=== PATIENT | male | born 1930 | race Caucasian/White ===

== ENCOUNTER 2018-03-27 14:15 | Observation (INO) ==
[2018-03-27] MEDS ORDERED: IOPAMIDOL 100 ML BOTTLE IV ONE (14:16)
[2018-03-27] MEDS ORDERED: ONDANSETRON 4 MG/2 ML VIAL IV ONE (14:51)
[2018-03-27 15:15] LABS: Basophils # (Auto) 0 K/mcL (0.0-0.3); Basophils % (Auto) 0.1 % (0.0-2.0); Eosinophils # (Auto) 0 K/mcL (0.0-0.7); Eosinophils % (Auto) 0.1 % (0.0-7.0); Granulocytes % (Auto) 86.1 % (38.0-78.0); Lymphocytes % (Auto) 11.2 % (15.5-49.0); Mean Cell Volume 95.8 fL (80.0-100.0); Mean Corpuscular HGB Conc 33.9 g/dL (31.0-36.0); Mean Corpuscular Hemoglobin 32.5 pg (26.0-34.0); Monocytes # (Auto) 0.2 K/mcL (0.1-0.9); Monocytes % (Auto) 2.5 % (1.0-12.0); Platelet Count 151 K/mcL (140-440); RBC 5.02 M/mcL (4.50-5.90); Red Cell Distribution Width 12.2 % (11.5-14.5)
[2018-03-27] MEDS: 0.9 % SODIUM CHLORIDE 1,000 ML IV SCH ×4 (15:29→20:55)
[2018-03-27] MEDS: fentaNYL 100 MCG/2 ML VIAL IV PRN ×3 (15:29→21:12)
[2018-03-27 15:35] LABS: ALT/SGPT 14 U/l (0-40); Albumin 4.1 gm/dL (3.2-5.2); Albumin/Globulin Ratio 1.1 (1.0-2.3); Alkaline Phosphatase 80 U/L (39-117); Amylase 73 U/L (28-100); Blood Urea Nitrogen 31 mg/dl (8-23)
--- NOTE | 2018-03-27 17:18 | Cat Scan Report ---
CLINICAL INFORMATION: Abdominal pain COMPARISON: 12/14/2017 TECHNIQUE: Following enteric contrast, 80 cc of Isovue-300 were injected intravenously, and 60 seconds later, 0.625 mm helical slices were obtained from the mid heart through the subtrochanteric regions. Following reconstruction, 2.5 mm sagittal, coronal and axial reformatted images were processed and reviewed at bone, lung and soft tissue windows. Five minutes later, 0.625 mm helical slices were obtained from the mid heart through the kidneys and viewed at soft tissue windows.The exam was performed using radiation dose optimization techniques including, but not limited to, automated exposure control, adjustment of the mA and/or kV according to patient size and use of iterative reconstruction technique. FINDINGS: Lung bases show chronic bronchitis scattered bullae and also scattered fibrotic change similar previous study noted pulmonary abnormalities. No effusions. The heart is mildly enlarged and there is moderate calcification aortic and mitral valves. Small hiatal hernia - previously seen Images through the abdomen show the liver is unremarkable. There two large stones in the gallbladder, 3 cm and 2 cm, respectively. On today's exam, the gallbladder wall is mildly thickened - 5 mm - a new finding.Common bile ducts are normal caliber CBD is 5 mm. Both kidneys, adrenal glands, spleen and pancreas are normal. There is a saccular aneurysm of the infrarenal abdominal aorta with a maximal diameter of 5.1 cm. This has increased 2 mm millimeters from the previous study. The anterior wall of the aneurysm is thrombosed - true lumen of the aneurysm is only 3 cm. The celiac, SMA and renal iliac arteries are patent. The SHAUNNA appears occluded proximally. Urinary bladder is unremarkable. The prostate is diminutive and may have been surgically resected.Multiple sigmoid diverticuli noted, but no CT evidence for diverticulitis. The remainder of the colon appendix and small bowel are normal. There is moderate concentric wall thickening of the gastric antrum - new from prior study and suggestive of peptic disease. Bone windows shows degenerative change, but no focal osseous lesion IMPRESSION: 1. Cholelithiasis - there are two large stones the gallbladder - 3 and 2 cm respectively. The gallbladder wall is now mildly thickened suggesting cholecystitis and or adenomyomatosis. Intrahepatic and common bile ducts are normal. 2. Mild concentric wall thickening of the gastric pylorus suggesting peptic disease - new. 3. 5.1 cm saccular aneurysm of the infrarenal abdominal aorta extending to the aortic bifurcation. Slight increase in size since the CT over three months ago. The anterior wall of the aneurysm is thrombosed. The SHAUNNA, originates from the anterior wall and is thrombosed as well. If the patient is a candidate for endovascular graft, suggest referral to interventional radiology. The aneurysm is currently in a pre-rupture state 4. Sigmoid diverticulosis - no evidence of diverticulitis 5. Small hiatal hernia Interpreted and Authenticated by: Rylan Wells 03/27/18
[2018-03-27] MEDS ORDERED: PIPERACILLIN SODIUM/TAZOBACTAM 3.375 GM in DEXTROSE 5% IN WATER 50 ML IV ONE (18:52)
--- NOTE | 2018-03-27 18:53 | Emergency Department Note ---
Abdominal Pain HPI - General Chief Complaint: Abdominal Pain Stated Complaint: abd pain, nausea Time Seen by Provider: 03/27/18 14:26 Source: patient Mode of arrival: wheelchair - History of Present Illness HPI Narrative: 87-year-old male presents with abdominal pain for last 3 days but much worse over the last 24 hours. He is also vomited at least 10 times over the last 24 hours. States he can eat anything in his whole stomach hurts all over. He does not know how to describe it. States he has had diverticulitis in the past and if so this would be the worst case he is ever had. No fever chills. Does have decreased appetite and cannot really eat anything last 24-48 hours. Nothing seems to make the pain better or worse. No dysuria or frequency. No diarrhea. No shortness of breath or difficulty breathing. No treatments prior to arrival. - Related Data Home Medications Medication Instructions Recorded Confirmed Hydrochlorothiazide [Oretic] 25 mg PO DAILY 03/27/18 03/27/18 Lisinopril [Zestril] 20 mg PO DAILY 03/27/18 03/27/18 amLODIPine [Norvasc] 10 mg PO DAILY 03/27/18 03/27/18 Allergies Allergy/AdvReac Type Severity Reaction Status Date / Time No Known Drug Allergies Allergy Verified 03/27/18 14:19 Review of Systems All systems ED: reviewed and negative except as stated. Abdominal Pain PMH - Past Medical History Medical history: Reports: cancer (Skin), hypertension, obesity, other ( cholelisthiasis (full of stones)). Denies: CHF, COPD, coronary artery disease, CVA, DM, hyperlipidemia, myocardial infarction, thyroid disease, TIA - Social History Smoking status: Former smoker Alcohol use: Reports: None Drug use: Reports: none. Denies: marijuana Physical Exam Limitations: no limitations General appearance: alert, in no apparent distress Head: atraumatic, normocephalic, normal inspection Eye: Present: normal appearance. Absent: conjunctival injection ENT: normal exam, normal oropharynx, mucous membranes moist, TM's normal bilaterally, normal external ear exam Neck: Present: normal inspection, trachea midline. Absent: tenderness, lymphadenopathy Chest: Present: normal inspection, symmetric chest wall rise Respiratory: Present: normal lung sounds bilaterally. Absent: respiratory distress, wheezes, accessory muscle use Cardiovascular: Present: regular rate, normal heart sounds Abdominal: Present: soft, tenderness (Diffuse abdominal tenderness throughout), mass. Absent: distention, guarding, rebound Extremities: Present: normal inspection, normal capillary refill. Absent: pedal edema Back: Absent: CVA tenderness (R), CVA tenderness (L) Neurological: Present: alert, oriented X3 Psychiatric: Present: normal affect, normal mood Skin: Present: warm, dry, intact, normal color. Absent: rash Course Course Narrative: I did speak with Dr. Marks, the surgeon on-call who would like to admit the patient, I will go ahead and place holding orders. Vital Signs Temperature 98.2 F 03/27/18 14:16 Pulse Rate 81 03/27/18 14:16 Respiratory Rate 16 03/27/18 14:16 Blood Pressure 161/89 03/27/18 14:16 Pulse Oximetry (%) 96 03/27/18 14:16 Temperature 98.2 F 03/27/18 14:16 Pulse Rate 64 03/27/18 18:46 Respiratory Rate 16 03/27/18 14:16 Blood Pressure 133/77 03/27/18 18:46 Pulse Oximetry (%) 97 03/27/18 18:46 Abdominal Pain - Lab Data Lab results reviewed: Yes I reviewed the patient's lab results. Result diagrams: 03/27/18 14:48 03/27/18 14:48 Lab Results 03/27/18 03/27/18 Range/Units 14:48 14:48 WBC 9.4 (4.5-11.0) K/mcL RBC 5.02 (4.50-5.90) M/mcL Hgb 16.3 (13.5-16.5) g/dL Hct 48.1 (41.0-55.0) % POC Hct 50.0 (41.0-55.0) % MCV 95.8 (80.0-100.0) fL MCH 32.5 (26.0-34.0) pg MCHC 33.9 (31.0-36.0) g/dL RDW 12.2 (11.5-14.5) % Plt Count 151 (140-440) K/mcL MPV 10.2 (7.4-10.4) fL Gran % 86.1 H (38.0-78.0) % Lymph % (Auto) 11.2 L (15.5-49.0) % Foard % (Auto) 2.5 (1.0-12.0) % Eos % (Auto) 0.1 (0.0-7.0) % Baso % (Auto) 0.1 (0.0-2.0) % Gran # 8.1 H (1.8-8.0) K/mcL Lymph # (Auto) 1.0 L (1.5-4.8) K/mcL Foard # (Auto) 0.2 (0.1-0.9) K/mcL Eos # (Auto) 0 (0.0-0.7) K/mcL Baso # (Auto) 0 (0.0-0.3) K/mcL POC Sodium 137 (133-145) mmol/L Sodium 135 (133-145) mmol/L POC Potassium 4.1 (3.3-5.1) mmol/L Potassium 4.1 (3.3-5.1) mmol/L POC Chloride 100 (96-108) mmol/L Chloride 96 (96-108) mmol/L Carbon Dioxide 26 (22-30) mmol/L POC Total CO2 26 (22-30) mmol/L Anion Gap 13.0 (8-16) POC BUN 34 H (8-23) mg/dl BUN 31 H (8-23) mg/dl Creatinine 1.5 H (0.7-1.2) mg/dl POC Creatinine 1.6 H (0.7-1.2) mg/dl GFR Calculation 41 Glucose 164 H (70-105) mg/dL POC Glucose 162 H (70-105) mg/dL Calcium 9.9 (8.6-10.4) mg/dl POC WB Ioniz Calcium 1.19 (1.16-1.32) mmol/L Total Bilirubin 0.8 (0.0-1.0) mg/dL AST 17 (0-37) U/l ALT 14 (0-40) U/l Alkaline Phosphatase 80 (39-117) U/L Total Protein 7.7 (5.9-8.4) gm/dL Albumin 4.1 (3.2-5.2) gm/dL Globulin 3.6 (2.2-3.7) gm/dL Albumin/Globulin Ratio 1.1 (1.0-2.3) Amylase 73 (28-100) U/L - Radiology Data Radiology results reviewed: Yes I reviewed the patient's radiology results. Disposition Pt seen by [facility] only: Yes Clinical Impression: Abdominal pain, Cholelithiasis, Vomiting Disposition: Home, Self-Care Condition: Fair Referrals: Junior Marks MD [Physician] - Time of Disposition: 18:52
[2018-03-27] MEDS ORDERED: fentaNYL 100 MCG/2 ML VIAL IV PRN (18:55)
[2018-03-27] MEDS ORDERED: ONDANSETRON 4 MG/2 ML VIAL IV PRN (18:55)
[2018-03-27] MEDS: PIPERACILLIN SODIUM/TAZOBACTAM 3.375 GM in DEXTROSE 5% IN WATER 50 ML IV SCH (20:23)
[2018-03-27] MEDS ORDERED: LACTATED RINGERS 1,000 ML IV SCH (20:30)
[2018-03-28] MEDS: PIPERACILLIN SODIUM/TAZOBACTAM 3.375 GM in DEXTROSE 5% IN WATER 50 ML IV SCH ×2 (00:56→07:30)
[2018-03-28] MEDS: fentaNYL 100 MCG/2 ML VIAL IV PRN (01:04)
[2018-03-28 06:35] LABS: Basophils # (Auto) 0 K/mcL (0.0-0.3); Basophils % (Auto) 0.3 % (0.0-2.0); Eosinophils # (Auto) 0.3 K/mcL (0.0-0.7); Eosinophils % (Auto) 2.9 % (0.0-7.0); Granulocytes % (Auto) 64.5 % (38.0-78.0); Lymphocytes % (Auto) 23.4 % (15.5-49.0); Mean Corpuscular HGB Conc 34.1 g/dL (31.0-36.0); Mean Corpuscular Hemoglobin 33.1 pg (26.0-34.0); Monocytes # (Auto) 0.8 K/mcL (0.1-0.9); Monocytes % (Auto) 8.9 % (1.0-12.0); Platelet Count 137 K/mcL (140-440); RBC 4.24 M/mcL (4.50-5.90); Red Cell Distribution Width 12.4 % (11.5-14.5)
[2018-03-28 07:03] LABS: ALT/SGPT 12 U/l (0-40); Albumin 3.2 gm/dL (3.2-5.2); Albumin/Globulin Ratio 1.2 (1.0-2.3); Alkaline Phosphatase 60 U/L (39-117); Blood Urea Nitrogen 26 mg/dl (8-23)
[2018-03-28] MEDS ORDERED: PIPERACILLIN SODIUM/TAZOBACTAM 2.25 GM in DEXTROSE 5% IN WATER 50 ML IV SCH (08:00)
--- NOTE | 2018-03-28 08:16 | General Surg History&Physical ---
History of Present Illness Patient information: Note initiated : 03/28/18 at 8:13 am Service Date, if different from initiated Date: [march 26] Patient: Cole Coto 87 y/o M admitted on 03/27/18 for abd pain, nausea. Chief Complaint: [87-year-old male admitted with acute cholecystitis with cholelithiasis. The patient has a three-day history of increasing abdominal pain which spread across his upper abdomen. And the pain became much worse on the sitting and persisted. He had nausea and vomiting at least 10 times and finally was seen in the emergency room where he was noted to have large gallstones in the gallbladder with thickened gallbladder wall and pericholecystic fluid.. He also had leukocytosis. Transaminases weren't were not significantly elevated. The patient is admitted and will be scheduled for urgent laparoscopic cholecystectomy.] HPI: Mr. Coto is a 87 year old M Past History Past medical history: Hypertension Abdominal aortic aneurysm measuring 5 x 5.3 cm History of diverticulitis Pulmonary fibrosis with bronchiectasis Past surgical history: Bilateral total knee arthroplasty Past social history: denies alcohol use denies tobacco use Denies drug use Medications and Allergies Home Medications Medication Instructions Recorded Confirmed Type Hydrochlorothiazide [Oretic] 25 mg PO DAILY 03/27/18 03/27/18 History Lisinopril [Zestril] 20 mg PO DAILY 03/27/18 03/27/18 History Polyethylene Glycol 3350 [Miralax] 17 gm PO DAILYP PRN 03/27/18 03/27/18 History amLODIPine [Norvasc] 10 mg PO DAILY 03/27/18 03/27/18 History Allergies Allergy/AdvReac Type Severity Reaction Status Date / Time No Known Drug Allergies Allergy Verified 03/27/18 14:19 Exam Temp Pulse Resp BP Pulse Ox 97.8 F 60 20 107/69 91 03/28/18 06:46 03/28/18 04:00 03/28/18 06:46 03/28/18 06:46 03/28/18 06:46 - General physical appearance well developed, well nourished, no distress, obese - Eyes PERRL, normal ocular movement. negative: icteric - ENT normal pinna, normal nares, normal mucosa, no hearing loss, no congestion - Head Head exam IM: Present: atraumatic, normal inspection, normocephalic - Neck no masses, no bruits, trachea midline, no lymphadectomy, no venous distension - Cardiovascular Cardiovascular exam IM: Present: normal rate and rhythm, RRR, +S1, +S2. Absent : JVD, tachycardia - Respiratory normal expansion, normal respiratory effort, other (scattered tubular breath sounds with rhonchi no rales or wheezes) - Abdomen Abdomen: Present: soft, tender ( tender right upper quadrant and epigastrium without mass; good active bowel sounds), bowel sounds Hernia: Present: none - Genitourinary Present: normal penis with no external lesions - Integumentary Present: no rash, no growths, no abnormal pigmentation - Neurologic Present: normal coordination, normal sensation - Musculoskeletal Present: normal gait, normal posture, other ( bilateral well healed knee incisions; good range of motion) - Psychiatric Present: oriented to time, oriented to person, oriented to place, speech is normal, memory intact Assessment and Plan (1) Cholelithiasis with cholecystitis without obstruction Patient has been treated with antibiotics overnight and will have laparoscopic cholecystectomy this morning Status: Acute Qualifiers: Cholelithiasis location: gallbladder Cholecystitis acuity: acute and chronic Qualified Code(s): K80.12 - Calculus of gallbladder with acute and chronic cholecystitis without obstruction (2) History of diverticulitis of colon Status: Chronic (3) Aortic aneurysm, abdominal We will make plans to have close follow-up with the patient because his abdominal aneurysm at 5.3 cm's at a critical level. He should be considered for endovascular repair of his aneurysm Status: Acute Priority: Medium Qualifiers: Presence of rupture: without rupture Qualified Code(s): I71.4 - Abdominal aortic aneurysm, without rupture (4) Hypertension Continue home medications after patient is taken by mouth Status: Chronic Qualifiers: Hypertension type: essential hypertension Qualified Code(s): I10 - Essential (primary) hypertension
--- NOTE | 2018-03-28 08:40 | XRay Report ---
CLINICAL INFORMATION: Preop COMPARISON: 12/26/2011 FINDINGS: The heart is mildly enlarged but unchanged. Tortuous thoracic aorta again noted. Remaining mediastinum and pulmonary vessels are normal. Mild bibasilar scarring is similar to multiple previous studies dating back to 2010 IMPRESSION: Mild stable cardiomegaly - no acute disease Interpreted and Authenticated by: Rylan Wells 03/28/18
[2018-03-28] MEDS ORDERED: LIDOCAINE HCL/PF 100 MG/5 ML SYRINGE IV ONE (09:45)
[2018-03-28] MEDS ORDERED: MIDAZOLAM 2 MG/2 ML VIAL IV ONE (09:45)
[2018-03-28] MEDS ORDERED: DEXAMETHASONE 10 MG/ML VIAL IV ONE (09:45)
[2018-03-28] MEDS ORDERED: PROPOFOL 200 MG/20 ML VIAL IV ONE (09:45)
[2018-03-28] MEDS ORDERED: KETAMINE 100 MG/ML ML IV ONE (09:45)
[2018-03-28] MEDS ORDERED: ROCURONIUM 10 MG/ML ML IV ONE (09:45)
[2018-03-28] MEDS ORDERED: NEOSTIGMINE 1 MG/ML VIAL IV ONE (09:45)
[2018-03-28] MEDS ORDERED: fentaNYL 100 MCG/2 ML VIAL IV ONE (09:45)
[2018-03-28] MEDS ORDERED: GLYCOPYRROLATE 0.2 MG/ML VIAL IV ONE (09:45)
[2018-03-28] MEDS ORDERED: ePHEDrine 50 MG/ML AMPUL IV ONE (09:45)
[2018-03-28] MEDS ORDERED: SUCCINYLCHOLINE 20 MG/ML ML IV ONE (09:45)
[2018-03-28] MEDS ORDERED: ONDANSETRON 4 MG/2 ML VIAL IV ONE (09:45)
[2018-03-28] MEDS ORDERED: METHOCARBAMOL 1,000 MG/10 ML VIAL IV PRN (10:09)
[2018-03-28] MEDS ORDERED: FLUMAZENIL 0.1 MG/ML ML IV PRN (10:09)
[2018-03-28] MEDS ORDERED: PROMETHAZINE 25 MG/ML VIAL IV PRN (10:09)
[2018-03-28] MEDS ORDERED: ACETAMINOPHEN 1,000 MG/100 ML BOTTLE IV ONE (10:09)
[2018-03-28] MEDS ORDERED: ePHEDrine 50 MG/ML AMPUL IV PRN (10:09)
[2018-03-28] MEDS ORDERED: NALOXONE HCL 0.4 MG/ML VIAL IV PRN (10:09)
[2018-03-28] MEDS ORDERED: ATROPINE SULFATE 0.4 MG/ML VIAL IV PRN (10:09)
[2018-03-28] MEDS ORDERED: fentaNYL 100 MCG/2 ML VIAL IV PRN ×2 (10:09→11:40)
[2018-03-28] MEDS ORDERED: ONDANSETRON 4 MG/2 ML VIAL IV PRN ×2 (10:09→11:40)
[2018-03-28] MEDS ORDERED: diphenhydrAMINE 50 MG/ML VIAL IV PRN (10:09)
[2018-03-28] MEDS ORDERED: IPRATROPIUM/ALBUTEROL 3 ML AMPUL.NEB NEB PRN (10:09)
[2018-03-28] MEDS ORDERED: LACTATED RINGERS 1,000 ML IV SCH (10:15)
--- NOTE | 2018-03-28 10:53 | Brief Operative Note ---
Date of procedure: 03/28/18 Pre-op diagnosis: cholelithiasis with cholecystitis Post-op diagnosis: other (acute cholcystitis with cholelithiasis) Procedure: laparoscopic cholecystectomy Grafts/Implants: No Anesthesia: GETA Findings: acute severe cholecystitis with obstructed cystic duct and very large stones Complications: none Surgeon: Junior Marks Estimated blood loss (cc): 20 Specimens Removed/Pathology: other (gallbladder) Condition: stable Disposition: PACU
[2018-03-28] MEDS: 0.9 % SODIUM CHLORIDE 1,000 ML IV SCH ×2 (12:27→13:34)
--- NOTE | 2018-03-28 12:29 | Operative Note ---
DATE OF OPERATION: 03/28/2018 PREOPERATIVE DIAGNOSIS: Cholelithiasis with cholecystitis. POSTOPERATIVE DIAGNOSIS: Acute cholecystitis with cholelithiasis. PROCEDURE: Laparoscopic cholecystectomy. SURGEON: Junior Marks MD FINDINGS: Acute severe cholecystitis with obstructed cystic duct and very large stones. DESCRIPTION OF PROCEDURE: Under general anesthesia, the patient's abdomen was prepped and draped in the sterile field. A supraumbilical incision was made. Veress needle was inserted uneventfully. Abdomen was insufflated with 2.5 liters of CO2. A 12 mm port was placed. Laparoscope was placed. Under videoscopic guidance, a 12 mm port and two 5 mm ports were placed in the right subcostal region. The gallbladder was grasped in position. It was tensely dilated, severely inflamed and edematous. It was decompressed with a Weck needle. It was then grasped and repositioned. The largest stone was impacted in the infundibulum and the cystic duct was obstructed. All of the tissue was edematous. Using blunt dissection, the cystic duct and cystic artery were isolated. Cystic duct was followed back to the gallbladder, clipped with 5 clips and divided. Cystic artery was followed onto the wall of the gallbladder, clipped with 4 clips and divided. The gallbladder was then from the infrahepatic bed using electrocautery and blunt dissection. There was a small amount of oozing from the bed, which was controlled with electrocautery. The gallbladder was placed in an Endopouch and retrieved. Irrigation was carried out. There was no residual bleeding. There was no bile leak. CO2 was allowed to escape from the abdomen and the ports were removed. Fascia at the umbilicus and then the upper medial port were closed with interrupted 0 Vicryl. Skin was closed with shiva. No drain was placed. The patient tolerated the procedure well. Dressings were placed. He was awakened and transferred to a bed and taken to the postanesthetic care unit in stable, satisfactory condition. LCS:fara Job ID: [id number] Doc ID: [id number] Junior Marks M.D.
[2018-03-28] MEDS: PIPERACILLIN SODIUM/TAZOBACTAM 2.25 GM in DEXTROSE 5% IN WATER 50 ML IV SCH ×3 (12:50→23:58)
[2018-03-29] MEDS: 0.9 % SODIUM CHLORIDE 1,000 ML IV SCH ×2 (02:45→12:29)
[2018-03-29 05:28] LABS: Basophils # (Auto) 0 K/mcL (0.0-0.3); Basophils % (Auto) 0.1 % (0.0-2.0); Eosinophils # (Auto) 0 K/mcL (0.0-0.7); Eosinophils % (Auto) 0 % (0.0-7.0); Granulocytes % (Auto) 83.8 % (38.0-78.0); Lymphocytes # (Auto) 1.1 K/mcL (1.5-4.8); Lymphocytes % (Auto) 11.2 % (15.5-49.0); Mean Cell Volume 97.6 fL (80.0-100.0); Mean Corpuscular HGB Conc 34.4 g/dL (31.0-36.0); Mean Corpuscular Hemoglobin 33.6 pg (26.0-34.0); Monocytes # (Auto) 0.5 K/mcL (0.1-0.9); Monocytes % (Auto) 4.9 % (1.0-12.0); Platelet Count 141 K/mcL (140-440); RBC 4.09 M/mcL (4.50-5.90); Red Cell Distribution Width 12.6 % (11.5-14.5)
[2018-03-29] MEDS: PIPERACILLIN SODIUM/TAZOBACTAM 2.25 GM in DEXTROSE 5% IN WATER 50 ML IV SCH ×2 (05:49→12:28)
[2018-03-29 05:59] LABS: ALT/SGPT 23 U/l (0-40); Alkaline Phosphatase 61 U/L (39-117); Bilirubin,Direct < 0.2 mg/dL (0.0-0.3); Blood Urea Nitrogen 22 mg/dl (8-23); Gamma Glutamyl Transpeptidase 10 U/L (8-61); Uric Acid 4.6 mg/dL (2.5-8.0)
--- NOTE | 2018-03-29 08:03 | General Surgery Progress Note ---
Surgical - Auxillary Note - Subjective Patient Information: Note initiated : 03/29/18 at 7:56 am Service Date, if different from initiated Date: [] Patient: Cole Coto 87 y/o M admitted on 03/27/18 for Abd Pain, Nausea/ Cholelithiasis. Chief Complaint: [] Patient sitting up in chair at bedside. Says he is feeling well. Pain that he presented with is gone; now its "just a wound". No nausea or vomiting. Vital Signs Temp Pulse Resp BP Pulse Ox 97.4 F 58 L 22 110/70 93 03/29/18 07:17 03/29/18 07:17 03/29/18 07:17 03/29/18 07:17 03/29/18 07:17 Period Temp Pulse Resp BP Sys/Strickland Pulse Ox Last 24 Hr 96.7 F-99.0 F 58-83 10-24 109-128/60-76 92-96 Intake and Output 03/28/18 03/29/18 03/29/18 21:59 05:59 13:59 Intake Total 199 / 199 1150 / 1150 Output Total 300 / 300 400 / 400 Balance -101 / -101 750 / 750 Weight 206 lb 8 oz PE: General appearance: no distress. Chest: clear bilaterally CV: regular rate and rhythm ABD: soft, mild tenderness at incisions--expected. Remainder of abdomen is non tender. A/P: s/p laparoscopic cholecystectomy for calculous cholecystitis Stable post op. Can go home on p.o. abx Abdominal Aortic Aneurysm: 5X5.3cm. --this needs to be addressed. I have contacted the [place] and he is scheduled for a visit this afternoon at the clinic in [place], [place] to start the process of referral to vascular surgery for this diagnosis.
--- NOTE | 2018-03-29 08:14 | Discharge Plan ---
Discharge Plan - Patient/Caregiver Discharge Instructions Activity: other (No heavy lifting more than 10 pounds for 6 weeks ) Diet: Regular Diet Additional Instructions: Report to [facility] at [address] [facility], [place] today at 4pm for clinic visit re: aortic aneurysm. [phone] - Follow up Plan Follow up with: Junior Marks MD [Physician] - (f/u with Dr. Marks in clinic on April 12, 2018 at 2pm ) Disposition: Home, Self-Care Prognosis: Fair Rehab Potential: Good I certify that the patient requires SNF services.: No Overall status at discharge: patient is progressing back to baseline
--- NOTE | 2018-03-29 13:57 | Surgical Pathology Report ---
HISTOLOGY SPECIMEN MICROSCOPIC DIAGNOSIS GALLBLADDER, CHOLECYSTECTOMY: -- CHRONIC CHOLECYSTITIS WITH CHOLELITHIASIS. -- ONE BENIGN LYMPH NODE. (RLF:herberthf) PROCEDURAL IMPRESSION Cholelithiasis with cholecystitis. GROSS DESCRIPTION Received in formalin labeled with the patient information, is a 9.0 x 3.2 x 3.5 cm pink-romero gallbladder. The serosal surface is smooth and glistening with a small amount of attached yellow-romero adipose tissue. There are multiple metal clips present including one on the cystic duct. The lumen contains viscous green-brown fluid and dark green sludge-like material. Also within the lumen are two yellow-green stones. The smaller is smooth and 2.4 cm in greatest dimension. The larger is rough surfaced and 3.5 cm in greatest dimension. The mucosa is pink-romero and trabecular. There is a firm 0.5 cm in diameter pink-romero nodule in the adipose tissue near the duct. The wall is up to 0.5 cm thick. Grossly, no lesions are identified. Senior Analyst sections submitted - one cassette. (STS:carina) Electronically Signed by: Vanessa Bray M.D.
== END 2018-03-29 12:47 | disposition home or self-care (01) ==
LOC: ED 14:15 → INTOOBSV 20:08 → MEDSUR 20:08
PROVIDERS: ADMIT Family Medicine Adult Medicine; ATTEND Surgery